=== PATIENT | female | born 1990 | race American Indian/Alaskan Native ===

== ENCOUNTER 2020-01-31 02:03 | Observation (INO) | payer OTHER ==
[2020-01-31] MEDS ORDERED: diphenhydrAMINE 50 MG/ML VIAL IV ONE (02:40)
[2020-01-31] MEDS ORDERED: HYDROmorphone 2 MG/1 ML INJ IV ONE ×4 (02:40→04:51)
[2020-01-31] MEDS ORDERED: ONDANSETRON 4 MG/2 ML INJ IV ONE (02:40)
[2020-01-31] MEDS ORDERED: SODIUM CHLORIDE 0.9% 1000 ML 1,000 ML IV ONE ×2 (02:41→06:10)
--- NOTE | 2020-01-31 02:41 | Emergency Department Report ---
ED General Adult HPI - General Chief complaint: Sickle Cell Crisis Stated complaint: SICKLE CELL CRISIS PUI?: No Time Seen by Provider: 01/31/20 02:37 Source: patient Mode of arrival: Ambulatory Limitations: No Limitations - History of Present Illness Initial comments: Patient is a 29-year-old female that presents emergency room with complaints of sickle cell crisis and pain. Patient states her pain started yesterday at 6 PM. Patient states she is hurting all over. Patient denies chest pain or shortness of breath. Patient complains of leg pain and back pain. Patient states her pain is a 10 out of 10. Patient states that the pain is worsening. Patient states that she is normally compliant with her sickle cell meds however she ran out of her hydroxyurea 4 days ago. Patient states she is a hard stick and would like to have a neck IV. Patient denies fever and chills. Patient states she is traveling from [place]. Patient states she is just passing through. Patient denies recent travel. Patient denies recent international travel. Patient denies exposure to the novel coronavirus. Patient denies sick contacts. Patient denies fever and chills. Patient denies cough. Patient denies diarrhea. Patient denies coming in contact with anybody with symptoms of the novel coronavirus. -: Sudden - Related Data Home Medications Medication Instructions Recorded Confirmed Last Taken Folic Acid 01/31/20 Unknown Hydroxyurea [Hydrea] 500 mg PO QDAY 01/31/20 01/31/20 Unknown Mirtazapine [Remeron 30mg TAB] 30 mg PO QHS 01/31/20 01/31/20 Unknown Morphine [Morphine TAB] 30 mg PO 01/31/20 Unknown Ondansetron [Zofran Odt] 4 mg PO Q8HR 01/31/20 01/31/20 Unknown QUEtiapine [SEROquel] 200 mg PO 01/31/20 Unknown Sertraline [Zoloft] 75 mg 01/31/20 Unknown Allergies Allergy/AdvReac Type Severity Reaction Status Date / Time metoclopramide [From Reglan] Allergy Unknown Verified 01/31/20 02:53 ED Review of Systems ROS: Stated complaint: SICKLE CELL CRISIS Other details as noted in HPI Constitutional: denies: chills, fever Eyes: denies: eye pain, eye discharge, vision change ENT: denies: ear pain, throat pain Respiratory: denies: cough, shortness of breath, wheezing Cardiovascular: denies: chest pain, palpitations Endocrine: no symptoms reported Gastrointestinal: denies: abdominal pain, nausea, diarrhea Genitourinary: denies: urgency, dysuria, discharge Musculoskeletal: back pain. denies: joint swelling, arthralgia Skin: denies: rash, lesions Neurological: denies: headache, weakness, paresthesias Psychiatric: denies: anxiety, depression Hematological/Lymphatic: denies: easy bleeding, easy bruising ED Past Medical Hx - Past Medical History Previous Medical History?: Yes Hx Sickle Cell Disease: Yes - Surgical History Past Surgical History?: Yes Hx Cholecystectomy: Yes Additional Surgical History: Spleenectomy - Family History Family history: no significant - Social History Smoking Status: Never Smoker Substance Use Type: None - Medications Home Medications: Home Medications Medication Instructions Recorded Confirmed Last Taken Type Folic Acid 01/31/20 Unknown History Hydroxyurea [Hydrea] 500 mg PO QDAY 01/31/20 01/31/20 Unknown History Mirtazapine [Remeron 30mg TAB] 30 mg PO QHS 01/31/20 01/31/20 Unknown History Morphine [Morphine TAB] 30 mg PO 01/31/20 Unknown History Ondansetron [Zofran Odt] 4 mg PO Q8HR 01/31/20 01/31/20 Unknown History QUEtiapine [SEROquel] 200 mg PO 01/31/20 Unknown History Sertraline [Zoloft] 75 mg 01/31/20 Unknown History ED Physical Exam - General Limitations: No Limitations General appearance: alert, in no apparent distress - Head Head exam: Present: atraumatic, normocephalic - Eye Eye exam: Present: normal appearance - ENT ENT exam: Present: mucous membranes moist - Neck Neck exam: Present: normal inspection - Respiratory Respiratory exam: Present: normal lung sounds bilaterally. Absent: respiratory distress - Cardiovascular Cardiovascular Exam: Present: regular rate, normal rhythm. Absent: systolic murmur, diastolic murmur, rubs, gallop - GI/Abdominal GI/Abdominal exam: Present: soft, normal bowel sounds - Extremities Exam Extremities exam: Present: normal inspection - Back Exam Back exam: Present: normal inspection - Neurological Exam Neurological exam: Present: alert, oriented X3 - Psychiatric Psychiatric exam: Present: normal affect, normal mood - Skin Skin exam: Present: warm, dry, intact, normal color. Absent: rash ED Course Vital Signs 01/31/20 01/31/20 01/31/20 02:21 03:05 04:01 Temperature 99.2 F Pulse Rate 104 H Respiratory 18 Rate Blood Pressure 140/72 108/53 106/64 Blood Pressure [Right] O2 Sat by Pulse 97 Oximetry 01/31/20 01/31/20 01/31/20 05:49 06:01 06:17 Temperature Pulse Rate 70 Respiratory 20 Rate Blood Pressure 71/21 81/47 Blood Pressure 100/50 [Right] O2 Sat by Pulse 96 Oximetry 01/31/20 01/31/20 07:00 08:01 Temperature Pulse Rate Respiratory Rate Blood Pressure 101/49 99/70 Blood Pressure [Right] O2 Sat by Pulse Oximetry - Reevaluation(s) Reevaluation #1: Initial evaluation done. Patient had a right EJ placed. No complications noted. See procedure note. 01/31/20 02:40 Reevaluation #2: Patient still complaining of severe pain. Patient given another dose of Dilaudid. 01/31/20 04:00 Reevaluation #3: Patient still complaining of severe pain. Patient will given another dose of Dilaudid. Patient has already been given 6 mg and this will make 8 mg of Dilaudid. 01/31/20 04:52 Reevaluation #4: I discussed all results with patient. I discussed plan of care with patient. Patient agrees with plan of care and admission. Patient to be admitted to the hospitalist service. 01/31/20 04:58 Reevaluation #5: Patient became hypotensive. Patient will be given fluids. 01/31/20 06:09 Patient blood pressure improved. 01/31/20 06:30 - Consultations Consultation #1: Hospitalist consulted for admission. Hospitalist to admit patient. 01/31/20 05:02 - EJ/Peripheral Line Neck R Time Out Performed: Yes Indications: nurses unable to establis Skin Cleansed in Sterile Fashion: Yes Size: 20 Dressing Placed: Tegaderm, tape Patient Tolerated Procedure: well, no complications ED Medical Decision Making - Lab Data Result diagrams: 01/31/20 03:49 01/31/20 05:38 - Medical Decision Making Patient is a 29-year-old female that presents emergency room with complaints of sickle cell crisis. Patient ran out of her hydroxyurea. Patient is complaining of severe pain. Patient was given multiple doses of Dilaudid and still continued to have pain. Patient admitted to the hospitalist service. Patient's labs unremarkable. Patient has a normal reticulocyte count. Patient's labs essentially unremarkable. - Differential Diagnosis Sickle cell crisis, generalized pain. Intractable pain. Critical Care Time: Yes Critical care time in (mins) excluding proc time.: 35 Critical care attestation.: If time is entered above; I have spent that time in minutes in the direct care of this critically ill patient, excluding procedure time. Critical Care Time: 35 minutes ED Disposition Clinical Impression: Sickle cell crisis, Intractable pain Hypotension Qualifiers: Hypotension type: unspecified hypotension type Qualified Code(s): I95.9 - Hypotension, unspecified Disposition: -09 OP ADMIT IP TO THIS HOSP Is pt being admited?: Yes Does the pt Need Aspirin: No Condition: Serious Time of Disposition: 05:04
[2020-01-31] MEDS ORDERED: KETOROLAC 30 MG/1 ML INJ IV ONE (02:54)
[2020-01-31] MEDS ORDERED: D5W/0.2% NACL 1,000 ML IV SCH (03:00)
[2020-01-31 04:18] LABS: Basophils % (Auto) 0.3 % (0.0-1.8); Eosinophils % (Auto) 0.8 % (0.0-4.3); Hematocrit 35.9 % (30.3-42.9); Hemoglobin 11.8 gm/dl (10.1-14.3); Lymphocytes % (Auto) 17.7 % (13.4-35.0); Mean Corpuscular HGB Conc 33 % (30-34); Mean Corpuscular Volume 77 fl (79-97); Monocytes # (Auto) 0.4 K/mm3 (0.0-0.8); Monocytes % (Auto) 6.3 % (0.0-7.3); Platelet Count 157 K/mm3 (140-440); Red Blood Count 4.67 M/mm3 (3.65-5.03)
[2020-01-31 04:26] LABS: Red Cell Distribution Width 21.7 % (13.2-15.2)
[2020-01-31] MEDS ORDERED: SODIUM CHLORIDE 0.9% 1000 ML 1,000 ML ONE (06:06)
[2020-01-31] MEDS ORDERED: ACETAMINOPHEN 325 MG TAB PO PRN (06:50)
[2020-01-31 07:19] LABS: Alanine Aminotransferase 6 units/L (7-56); Albumin 3.9 g/dL (3.9-5); BUN/Creatinine Ratio 13; Blood Urea Nitrogen 8 mg/dL (7-17); Calcium 8.1 mg/dL (8.4-10.2); Hemolysis Index 38
[2020-01-31] MEDS: HYDROmorphone 1 MG/1 ML INJ IV PRN ×3 (08:41→17:31)
[2020-01-31] MEDS: SODIUM CHLORIDE 0.9% 1000 ML 1,000 ML IV SCH ×2 (08:43→22:44)
[2020-01-31] MEDS: HEPARIN 5,000 UNIT/1 ML VIAL SUB-Q SCH ×2 (09:14→21:42)
[2020-01-31] MEDS ORDERED: FOLIC ACID 1 MG TAB PO SCH (10:00)
[2020-01-31] MEDS ORDERED: HYDROXYUREA 500 MG CAP PO SCH (10:00)
[2020-01-31] MEDS ORDERED: diphenhydrAMINE 50 MG/ML VIAL IV PRN (16:07)
[2020-01-31] MEDS: HYDROmorphone 2 MG/1 ML INJ IV PRN (21:41)
[2020-01-31] MEDS ORDERED: MIRTAZAPINE 30 MG TAB PO SCH (22:00)
[2020-01-31] MEDS ORDERED: QUEtiapine 200 MG TAB PO SCH (22:00)
[2020-01-31] MEDS: ONDANSETRON 4 MG/2 ML INJ IV PRN (22:43)
[2020-02-01] MEDS: HYDROmorphone 2 MG/1 ML INJ IV PRN ×2 (02:57→08:24)
[2020-02-01] MEDS: ONDANSETRON 4 MG/2 ML INJ IV PRN (03:02)
[2020-02-01 06:36] VITALS: BP 104/59
[2020-02-01] MEDS ORDERED: KETOROLAC 30 MG/1 ML INJ IV ONE (06:40)
[2020-02-01] MEDS: SODIUM CHLORIDE 0.9% 1000 ML 1,000 ML IV SCH (08:05)
== END 2020-02-01 09:00 | disposition left against medical advice (07) ==
LOC: ED 02:03 → 3A 05:30
PROVIDERS: ADMIT Internal Medicine; ATTEND Internal Medicine
DX: D57.00 Hb-SS disease with crisis, unspecified (principal); I95.9 Hypotension, unspecified; M79.10 Myalgia, unspecified site; Z90.49 Acquired absence of other specified parts of digestive tract; Z88.8 Allergy status to other drugs, medicaments and biological substances; Z79.899 Other long term (current) drug therapy; Z90.81 Acquired absence of spleen
CPT/HCPCS: 36415; 80053; 82550; 85025; 85045; 87641; 96361; 96372; 96374; 96375; 96376; 99291; G0378; J1170; J1200; J1644; J1885; J2405; J7030